=== PATIENT | female | born 1960 | race Caucasian/White ===

== ENCOUNTER 2021-12-03 15:51 | Emergency (ER) | payer MEDICAID ==
[~2021-12-03] VITALS: Ht 165.1 cm; Wt 59.4 kg
--- OUTSIDE RECORDS SUMMARY | 2021-12-03 15:54 | XMS ---
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 Care History Medical/Surgical 05/28/2016 [facility] Stroke x2 / Hypertension / Possible Type II Diabetes / Baseline tachycardiA / Ulcer of unclear diagnostic / Gastritis Surgical history: Total abdominal hysterectomy and bilateral salpingo-oophorectomy; Right retinal detachment; Right cataract surgery; Right shoulder surgery. Infection/Chronic 07/20/2018 [facility] C-diff Substance Use/Overdose 05/28/2016 [facility] Alcohol abuse Behavioral 09/12/2016 [facility] Suicidal / Depression / Anxiety E.DRikki VISIT COUNT (12 MO.) 32 [facility] 1 [facility] 1 [place] [address] [place] [id number] SUDHEER Vigil TOTAL 40 NOTE: Visits indicate total known visits. ED/UCC VISIT TRACKING (12 MO.) 12/03/2021 15:[address] [facility] [place] TYPE: Emergency COMPLAINT: - BLOOD SUGAR PROBLEM [facility] [place] [facility] DIAGNOSES: - Alcohol dependence with withdrawal, unspecified - Alcohol Intoxication - #371 ETOH triage - Alcohol use, unspecified with intoxication, unspecified - Type 2 diabetes mellitus with hyperglycemia 11/20[facility]2021 05[facility] [place] [facility] DIAGNOSES: - Nausea - Type 2 diabetes mellitus with ketoacidosis without coma - ETOH - Respiratory syncytial virus as the cause of diseases classified elsewhere - Shortness of Breath - Other specified metabolic disorders - Alcohol dependence with withdrawal, unspecified 11/11/2021 16:22 [facility] [place] TYPE: Emergency DIAGNOSES: - Alcohol use, unspecified with intoxication, uncomplicated - ETOH - Cough, unspecified - SANE Exam - Alcohol Problem 11/08/2021 20:26 [facility] [place] TYPE: Emergency DIAGNOSES: - Alcohol Intoxication - fall, etoh 10/26/2021 20:25 [facility] [place] TYPE: Emergency DIAGNOSES: - Alcohol Intoxication - intoxication 10/24/2021 11:25 [facility] [place] TYPE: Emergency DIAGNOSES: - Blood Sugar Problem - Weakness - Generalized 10/22/2021 03:03 [facility] [place] TYPE: Emergency DIAGNOSES: - Alcohol Problem - Dehydration - Vomiting - Alcohol dependence, uncomplicated - Hyperglycemia, unspecified - Patient's other noncompliance with medication regimen - Nausea - etoh intox, n/v - Vomiting, unspecified 10/21/2021 06:39 [facility] [place] TYPE: Emergency DIAGNOSES: - Unwell SOB - Alcohol use, unspecified with intoxication, unspecified - Alcohol dependence with withdrawal, uncomplicated - Alcohol Problem - Alcohol dependence, uncomplicated 10/15/2021 21:31 [facility] [place] TYPE: Emergency DIAGNOSES: - Alcohol abuse with withdrawal, unspecified - Alcohol Intoxication - Withdrawal Symptoms 08/14/2021 21:09 [facility] [place] TYPE: Emergency DIAGNOSES: - Hyperglycemia, unspecified - high blood sugar - Alcohol abuse, uncomplicated - Hyperglycemia - Patient's noncompliance with other medical treatment and regimen 08/09/2021 22:28 [facility] [place] TYPE: Emergency DIAGNOSES: - ETOH - Vomiting, unspecified - Alcohol use, unspecified with intoxication, unspecified - Vomiting - Hyperglycemia, unspecified - Hematuria, unspecified 08/07/2021 16:52 [facility] [place] TYPE: Emergency DIAGNOSES: - Alcohol use, unspecified with intoxication, unspecified - Sasha PETE 08/06/2021 11:28 [facility] [place] TYPE: Emergency DIAGNOSES: - ETOH - Alcohol use, unspecified with intoxication, unspecified - Alcohol Intoxication - Alcohol dependence, uncomplicated 04/30/2021 20:56 [facility] [place] TYPE: Emergency DIAGNOSES: - Diabetic Problem - Alcohol use, unspecified with intoxication, uncomplicated - Hyperglycemia - Type 2 diabetes mellitus with hyperglycemia - 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 04/29/2021 15:08 [facility] [place] TYPE: Emergency DIAGNOSES: - Alcohol use, unspecified with intoxication, uncomplicated - Hyperglycemia, unspecified - Alcohol Problem - etoh 04/28/2021 17:51 [facility] [place] TYPE: Emergency DIAGNOSES: - Unspecified fall, initial encounter - Fall - Hyperglycemia, unspecified - Alcohol use, unspecified with intoxication, uncomplicated - intoxicated - Unspecified injury of head, initial encounter 04/28/2021 06:49 [facility] [place] TYPE: Emergency DIAGNOSES: - Alcohol dependence with withdrawal, unspecified - Nausea with vomiting, unspecified - fever, cough - Candidal stomatitis - Vomiting 04/24/2021 13:28 [facility] [place] TYPE: Emergency DIAGNOSES: - Alcohol use, unspecified with intoxication, unspecified - Type 1 diabetes mellitus without complications - Blood Sugar Problem - Hyperglycemia, unspecified 04/14/2021 18:16 [facility] [place] TYPE: Emergency DIAGNOSES: - hyperglycemia - Dehydration - Hyperglycemia, unspecified - Alcohol use, unspecified with intoxication, uncomplicated Plus 20 More Visits INPATIENT VISIT TRACKING (12 MO.) 11/20/2021 05:48 [facility] TYPE: Medical Surgical DIAGNOSES: - Type 1 diabetes mellitus without complications - Other specified metabolic disorders - Type 2 diabetes mellitus with hyperglycemia - Wedge compression fracture of T11-T12 vertebra, subsequent encounter for fracture with routine healing - Alcohol dependence with withdrawal delirium - Alcohol dependence, uncomplicated - Alcohol dependence with withdrawal, unspecified - Chronic obstructive pulmonary disease, unspecified - Gastro-esophageal reflux disease without esophagitis - Respiratory syncytial virus as the cause of diseases classified elsewhere - residential (current) use of insulin - Polyneuropathy, unspecified - Type 2 diabetes mellitus with ketoacidosis without coma - Spondylosis without myelopathy or radiculopathy, thoracic region 10/26/2021 20:25 [facility] [place] TYPE: Medical Surgical DIAGNOSES: - Alcohol dependence, uncomplicated - Pneumonia, unspecified organism - Chronic obstructive pulmonary disease with (acute) exacerbation 10/15/2021 21:31 [facility] [place] TYPE: Orthopedic DIAGNOSES: - Type 1 diabetes mellitus without complications - Polyneuropathy, unspecified - Alcohol abuse with withdrawal, unspecified - Alcohol dependence with withdrawal, uncomplicated - Alcoholic gastritis without bleeding - Type 2 diabetes mellitus with hyperglycemia - Wedge compression fracture of T11-T12 vertebra, subsequent encounter for fracture with routine healing - Essential (primary) hypertension 03/26/2021 19:22 [facility] [place] TYPE: Surgical Services DIAGNOSES: - Wedge compression fracture of T11-T12 vertebra, subsequent encounter for fracture with routine healing - Type 1 diabetes mellitus without complications - Hypokalemia - Essential (primary) hypertension - Polyneuropathy, unspecified - Bilious vomiting - Alcohol abuse, uncomplicated - Hyperglycemia, unspecified - Post-traumatic stress disorder, unspecified - Chronic obstructive pulmonary disease, unspecified 03/04/2021 14:32 [facility] TYPE: General Medicine DIAGNOSES: - ETOH W/D [email or web address]
== END 2021-12-03 19:08 | disposition home or self-care (01) ==
LOC: ED 15:51
DX: E11.65 Type 2 diabetes mellitus with hyperglycemia (principal); E11.9 Type 2 diabetes mellitus without complications; I10 Essential (primary) hypertension
CPT/HCPCS: 80048; 81001; 85025; 99284